=== PATIENT | female | born 1985 | race Two or more races ===

== ENCOUNTER 2020-01-22 10:00 | Outpatient (CLI) | payer OTHER | END 2020-01-22 11:00 | disposition home or self-care (01) | LOC: PPH VACUNA 10:00 | DX: Z23 Encounter for immunization (principal) ==

== ENCOUNTER 2020-04-23 10:57 | Emergency (ER) | payer OTHER ==
[~2020-04-23] VITALS: Ht 157.5 cm; Wt 96.2 kg
[2020-04-23] MEDS ORDERED: PROAIR HFA8.5 GM (11:10)
[2020-04-23] MEDS ORDERED: SINGULAIR 10MG10 MG PO (11:10)
[2020-04-23] MEDS ORDERED: FLOVENT DISKU100 MCG IH (11:11)
[2020-04-23] MEDS ORDERED: CLARITIN5 MG (11:11)
[2020-04-23] MEDS ORDERED: NORFLEX100MG PO (13:43)
[2020-04-23] MEDS ORDERED: KETO10TA2 PO (13:43)
== END 2020-04-23 14:36 | disposition home or self-care (01) ==
LOC: ER 10:57
DX: M54.2 Cervicalgia (principal)

== ENCOUNTER 2020-08-15 13:43 | Emergency (ER) | payer OTHER ==
[~2020-08-15] VITALS: Ht 157.5 cm; Wt 95.3 kg
[~2020-08-15 13:43] MED LIST: CLARITIN5 MG; FLOVENT DISKU100 MCG IH; KETO10TA2 PO; NORFLEX100MG PO; PROAIR HFA8.5 GM; SINGULAIR 10MG10 MG PO
== END 2020-08-15 19:04 | disposition home or self-care (01) ==
LOC: ER 13:43
DX: J45.998 Other asthma (principal); Z11.52 Encounter for screening for COVID-19

== ENCOUNTER 2020-09-15 15:29 | Outpatient (CLI) | payer OTHER | END 2020-09-15 15:56 | disposition home or self-care (01) | LOC: MRI 15:29 → EDBD 15:29 → MRI 15:56 | PROVIDERS: ATTEND Pathology Anatomic Pathology & Clinical Pathology | DX: S83.206A Unspecified tear of unspecified meniscus, current injury, right knee, initial encounter (principal) | CPT/HCPCS: 73721 ==

== ENCOUNTER 2020-10-21 11:55 | Outpatient (CLI) | payer OTHER | END 2020-10-21 12:03 | disposition home or self-care (01) | LOC: LAB 11:55 | PROVIDERS: ATTEND General Practice | DX: N93.9 Abnormal uterine and vaginal bleeding, unspecified (principal) ==

== ENCOUNTER 2020-10-29 13:56 | Outpatient (CLI) | payer OTHER | END 2020-10-29 14:12 | disposition home or self-care (01) | LOC: SONOGRAMA 13:56 | PROVIDERS: ATTEND General Practice | DX: R10.2 Pelvic and perineal pain (principal) ==

== ENCOUNTER 2020-11-03 08:38 | Outpatient (CLI) | payer OTHER | END 2020-11-03 10:09 | disposition home or self-care (01) | LOC: LAB 08:38 | PROVIDERS: ATTEND Internal Medicine | DX: I10 Essential (primary) hypertension (principal); M54.5 Low back pain; Z01.810 Encounter for preprocedural cardiovascular examination; N92.4 Excessive bleeding in the premenopausal period ==

== ENCOUNTER 2021-01-26 08:00 | Outpatient (CLI) | payer OTHER | END 2021-01-26 08:30 | disposition home or self-care (01) | LOC: PPH VACUNA 08:00 | PROVIDERS: ATTEND Emergency Medicine Pediatric Emergency Medicine | DX: Z23 Encounter for immunization (principal) ==

== ENCOUNTER 2021-12-10 15:13 | Outpatient (CLI) | payer OTHER | END 2021-12-10 15:22 | disposition home or self-care (01) | LOC: LAB 15:13 | DX: N93.8 Other specified abnormal uterine and vaginal bleeding (principal) ==

== ENCOUNTER 2021-12-11 09:47 | Day surgery (SDC) | payer OTHER ==
[~2021-12-11] VITALS: Ht 157.5 cm; Wt 105.2 kg
== END 2021-12-11 21:25 | disposition home or self-care (01) ==
LOC: CIR.AMB 09:47 → U 09:47 → CIR.AMB 21:25
PROVIDERS: ATTEND Obstetrics & Gynecology Obstetrics
DX: N84.0 Polyp of corpus uteri (principal); Z20.822 Contact with and (suspected) exposure to COVID-19; Z91.013 Allergy to seafood; Z86.16 Personal history of COVID-19; K21.9 Gastro-esophageal reflux disease without esophagitis; G43.909 Migraine, unspecified, not intractable, without status migrainosus

== ENCOUNTER 2022-01-20 08:00 | Outpatient (CLI) | payer OTHER | END 2022-01-20 08:05 | disposition home or self-care (01) | LOC: PPH VACUNA 08:00 | PROVIDERS: ATTEND Emergency Medicine Pediatric Emergency Medicine | DX: Z23 Encounter for immunization (principal) ==